=== PATIENT | female | born 1985 | race Caucasian/White ===

== ENCOUNTER 2017-05-19 08:17 | Outpatient (CLI) | payer OTHER ==
--- NOTE | 2017-05-19 11:26 | MRI ---
MRI RIGHT ELBOW WITHOUT IV CONTRAST: INDICATIONS: Injury to elbow one month ago while restraining a child. The patient has had right elbow pain since then. COMPARISON: None. TECHNIQUE: Multiplanar, multisequence MR images were obtained of the right elbow without IV contrast. A surface marker was placed within the region of interest, along the lateral aspect of the right elbow. FINDINGS: There is heterogeneous T2 signal involving the common extensor origin of the right forearm, in the re gion of the lateral humerus, consistent with mild lateral epicondylitis. The visualized anterior ban d of the ulnar collateral ligament, radial collateral ligament, and lateral ulnar collateral ligament is intact. The biceps, brachialis, and triceps insertions are normal appearing. The ulnar nerve hebert s a normal appearance. No joint capsular distention is evident. No intraarticular body is present. No enlarged lymph nodes are present. IMPRESSION: Mild lateral epicondylitis. POS: DAISY
== END 2017-05-19 08:18 | disposition home or self-care (01) ==
LOC: MRI 08:17
PROVIDERS: ATTEND Family Medicine
DX: S59.901A Unspecified injury of right elbow, initial encounter (principal); M77.11 Lateral epicondylitis, right elbow

== ENCOUNTER 2018-10-10 21:53 | Emergency (ER) | payer BC ==
[2018-10-10] MEDS ORDERED: Acetaminophen 500 MG TAB ONE (23:42)
== END 2018-10-11 00:50 | disposition home or self-care (01) ==
LOC: ERS 21:53
DX: O9A.212 Injury, poisoning and certain other consequences of external causes complicating pregnancy, second trimester (principal); S30.1XXA Contusion of abdominal wall, initial encounter; S90.812A Abrasion, left foot, initial encounter; O99.333 Smoking (tobacco) complicating pregnancy, third trimester; Z3A.15 15 weeks gestation of pregnancy; V89.2XXA Person injured in unspecified motor-vehicle accident, traffic, initial encounter
CPT/HCPCS: 99283